=== PATIENT | female | born 1975 | race Caucasian/White ===

== ENCOUNTER 2017-04-10 12:10 | Day surgery (SDC) | payer OTHER ==
[2017-04-09 09:00] VITALS: BMI 44.3
[2017-04-10 13:17] LABS: INR 1.02 (0.82-1.09); PROTHROMBIN TIME (PATIENT) 11.2 SEC (9.98-11.88)
[2017-04-10] MEDS ORDERED: MIDAZOLAM HCL 2 MG/2 ML SINGLE DOSE VIAL ONE ×2 (13:57→16:28)
[2017-04-10] MEDS ORDERED: PROPOFOL 20 ML ONE ×10 (14:32→16:30)
[2017-04-10] MEDS ORDERED: LIDOCAINE HCL 2% 100 MG/5 ML DISP.SYRIN ONE (14:34)
[2017-04-10] MEDS ORDERED: LIDOCAINE HCL 1%, 10 MG/ML (20ML VIAL) ONE (14:35)
[2017-04-10] MEDS ORDERED: SUCCINYLCHOLINE CHLORIDE 200 MG/10 ML VIAL ONE (14:45)
[2017-04-10] MEDS ORDERED: BUPIVACAINE HCL/PF 0.5% (5MG/ML) 10 ML VIAL ONE (15:08)
[2017-04-10] MEDS ORDERED: LIDOCAINE HCL 1%, 10 MG/ML (20ML VIAL) IJ ONE (15:09)
[2017-04-10] MEDS ORDERED: BUPIVACAINE HCL/PF 0.5% (5MG/ML) 10 ML VIAL IJ ONE (15:09)
[2017-04-10] MEDS ORDERED: POVIDONE-IODINE OINTMENT 10% - 28.4 GM TUBE ONE (15:18)
[2017-04-10] MEDS ORDERED: OXYCODONE/APAP 5/325MG COMBO TABLET PO PRN ×2 (16:58)
--- NOTE | 2017-04-10 16:58 | OP ---
Operative Note - Note: Operative Date: 04/10/17 Pre-Operative Diagnosis: ESRD on HD Operation: Revision AV fistula left arm, exteriorization Findings: Basilic vein fistula, diameter ~8 mm Post-Operative Diagnosis: Same as Pre-op Surgeon: Jet Lundberg Anesthesiologist/FITNESS TRAINER: Eulalia Quezada Anesthesia: General Estimated Blood Loss (mls): 50
[2017-04-10] MEDS ORDERED: ONDANSETRON 4 MG/2 ML VIAL IVPUSH PRN (17:00)
--- NOTE | 2017-04-10 17:02 | HP ---
Admitting History and Physical - Admission History of Present Illness: 42 year old female with ESRD on HD needs left arm fistula revised to move under skin. - Past Medical History Cardiovascular: Yes: HTN Gastrointestinal: Yes: Constipation (occasional). No: Gastritis, GI Bleed Renal/: Yes: Renal Failure (on PD-> HD), Other (Polycystic Kidney Disease) ...LMP: 03/31/17 ...: No Heme/Onc: Yes: Anemia (receives iron with HD) - Past Surgical History Past Surgical History: Yes: Cholecystectomy, (times two) - Smoking History Smoking history: Never smoked Have you smoked in the past 12 months: No - Alcohol/Substance Use Hx Alcohol Use: No - Social History ADL: Independent Home Medications - Allergies Allergies/Adverse Reactions: Allergies Allergy/AdvReac Type Severity Reaction Status Date / Time codeine Allergy Severe Rash Verified 04/10/17 13:03 - Home Medications Home Medications: Ambulatory Orders Aspirin [Aspirin EC] 81 mg PO DAILY 01/21/15 Folic Acid - 1 mg PO DAILY 01/21/15 Losartan Potassium 100 mg PO DAILY 01/21/15 Metoprolol Tartrate 100 mg PO BID 01/21/15 Furosemide [Lasix -] 80 mg PO BID 03/04/15 Hydralazine HCl 50 mg PO BID 10/26/15 Omeprazole [Prilosec] 20 mg PO DAILY 10/26/15 Family Disease History - Family Disease History Family Disease History: Other: Father (PCKD) Physical Examination Vital Signs: Vital Signs Temperature 98.8 F 04/10/17 12:56 Pulse Rate 70 04/10/17 12:56 Respiratory Rate 20 04/10/17 12:56 Blood Pressure 144/95 04/10/17 12:56 O2 Sat by Pulse Oximetry (%) 97 04/10/17 12:55 Constitutional: Yes: Obese Eyes: Yes: WNL HENT: Yes: WNL Neck: Yes: WNL Cardiovascular: Yes: WNL, Regular Rate and Rhythm Respiratory: Yes: WNL, Regular Gastrointestinal: Yes: Normal Bowel Sounds, Other (Abdominal wound from recent surgery) Extremities: Yes: Other (Left arm thrill.) Edema: No Labs: CBC, BMP 04/10/17 12:39 Problem List - Problems (1) ESRD (end stage renal disease) Assessment/Plan: For fistula revision Code(s): N18.6 - END STAGE RENAL DISEASE
[2017-04-10 17:59] VITALS: TEMP 98.3
[2017-04-10] MEDS ORDERED: oxyCODONE HCL 5 MG TABLET PO PRN ×2 (18:51→18:52)
[2017-04-10] MEDS ORDERED: ACETAMINOPHEN 325 MG TABLET (FP) PO PRN ×2 (18:51→18:52)
[2017-04-10 19:08] VITALS: BP 147/96; PULSE 77
--- NOTE | 2017-04-13 13:51 | OP ---
DATE OF OPERATION: 04/10/2017 SURGEON: Jet Alvarez MD PROCEDURE: Revision of left arm arteriovenous fistula with an exteriorization of the basilic vein. PREOPERATIVE DIAGNOSIS: End-stage renal disease, on hemodialysis. POSTOPERATIVE DIAGNOSIS: End-stage renal disease, on hemodialysis. ANESTHESIA: General. ANESTHESIOLOGIST: Eulalia Quezada DO OPERATIVE FINDINGS: The basilic vein fistula was patent and the vein measured approximately 8 mm in diameter throughout its length. OPERATIVE PROCEDURE: Following routine patient identification, side and site verification, intravenous sedation and then general anesthesia were induced. The left arm was prepped with ChloraPrep. A mixture of 1% Xylocaine and 0.5% Marcaine was infiltrated over the basilic vein which had been mapped preoperatively with duplex imaging. A long skin incision was made along the medial aspect of the upper arm and carried down through subcutaneous tissues using cautery for hemostasis. The basilic vein fistula was identified distally and then exposed by division of the overlying tissues. Clips and ties of silk were used on crossing vessels. A small branch of the musculocutaneous nerve was divided with clips to allow mobilization of the vein. All side branches of the vein were ligated with silk ties and divided. The vein was then mobilized from its bed. The anterior aspect of the arm was marked for location of the transposed vein and then a skin flap was raised using cautery and thinned in the area where the vein would be placed down to the subcutaneous tissues. The vein was placed in the pocket and the underlying fascia was closed with interrupted sutures of 3-0 Vicryl. The skin flap was tacked down around the vein with care not to impinge upon the lumen of the vein. An ultrasound was used to check and areas where the vein appeared too deep for cannulation were thinned further by division of the subcutaneous tissues. After adequate placement of the vein, the remainder of the incision was closed with interrupted sutures of 3-0 Vicryl. Skin was closed with andriy and a sterile dressing was applied and the patient was taken to the recovery room in stable condition. JET ALVAREZ M.D. LUANA/[id number]
== END 2017-04-10 19:00 | disposition home or self-care (01) ==
LOC: JASU-SURG 12:10
PROVIDERS: ATTEND Surgery
PROC: 05WY03Z Revision of Infusion Device in Upper Vein, Open Approach (ICD-10-PCS; principal; 2017-04-10 14:00)
DX: I12.0 Hypertensive chronic kidney disease with stage 5 chronic kidney disease or end stage renal disease (principal); N18.6 End stage renal disease; Z99.2 Dependence on renal dialysis
CPT/HCPCS: 36415; 84132; 84703; 85610; 94760

== ENCOUNTER 2018-02-12 09:08 | Day surgery (SDC) | payer OTHER ==
[2018-02-11 09:54] VITALS: BMI 47.4
[2018-02-12 13:06] VITALS: PULSE 75
[2018-02-12 13:07] VITALS: TEMP 98.3
[2018-02-12 13:58] VITALS: BP 129/82
== END 2018-02-12 14:13 | disposition home or self-care (01) ==
LOC: JASU-SURG 09:08
PROVIDERS: ATTEND Surgery
PROC: 06WY07Z Revision of Autologous Tissue Substitute in Lower Vein, Open Approach (ICD-10-PCS; principal; 2018-02-12)
DX: T82.590A Other mechanical complication of surgically created arteriovenous fistula, initial encounter (principal); I12.0 Hypertensive chronic kidney disease with stage 5 chronic kidney disease or end stage renal disease; N18.6 End stage renal disease; Z99.2 Dependence on renal dialysis; D64.9 Anemia, unspecified
CPT/HCPCS: 36415; 84132; 84703; 94760; J1644

== ENCOUNTER 2024-11-12 03:54 | Day surgery (SDC) | payer OTHER, BC ==
[2024-11-10 15:30] VITALS: BMI 38.7
[2024-11-12 06:56] VITALS: RESP 16
[2024-11-12] MEDS ORDERED: SUCCINYLCHOLINE CHLORIDE 200 MG/10 ML SYRINGE ONE (08:07)
[2024-11-12] MEDS ORDERED: LIDOCAINE HCL 1%, 10 MG/ML (20ML VIAL) ONE (08:31)
[2024-11-12] MEDS ORDERED: ACETAMINOPHEN INJECTION 100 ML ONE (08:31)
[2024-11-12] MEDS ORDERED: MIDAZOLAM HCL 2 MG/2 ML SINGLE DOSE VIAL ONE ×2 (08:35→08:43)
[2024-11-12] MEDS ORDERED: MAGNESIUM SULF 50% (8.12 MEQ/2 ML-1 GM VIAL) ONE (08:40)
[2024-11-12] MEDS ORDERED: GLYCOPYRROLATE 0.2 MG/1 ML VIAL ONE (08:45)
[2024-11-12] MEDS: ceFAZolin SODIUM 1 GM VIAL IVPB ONE (08:45)
[2024-11-12] MEDS ORDERED: KETAMINE HCL 200 MG/20 ML VIAL ONE (08:45)
[2024-11-12] MEDS ORDERED: ceFAZolin SODIUM 1 GM VIAL ONE (08:48)
[2024-11-12] MEDS ORDERED: PROPOFOL 20 ML ONE (08:48)
[2024-11-12] MEDS ORDERED: IBUPROFEN 600 MG TABLET (FP) PO PRN (09:19)
[2024-11-12 09:40] VITALS: TEMP 98
[2024-11-12 12:50] VITALS: BP 140/91; PULSE 84
== END 2024-11-12 12:00 | disposition home or self-care (01) ==
LOC: JASU-SURG 03:54
PROVIDERS: ATTEND Surgery
PROC: 0JB80ZZ Excision of Abdomen Subcutaneous Tissue and Fascia, Open Approach (ICD-10-PCS; principal; 2024-11-12 08:30)
DX: T81.89XA Other complications of procedures, not elsewhere classified, initial encounter (principal)
CPT/HCPCS: 36415; 84132; 88304-TC; J0131